=== PATIENT | male | born 1975 | race Caucasian/White ===

== ENCOUNTER 2016-12-14 15:13 | Emergency (ER) | payer MEDICARE, OTHER ==
[~2016-12-14] VITALS: Ht 188 cm; Wt 188.0 kg
[~2016-12-14 15:13] MED LIST: CYMB60CA PO; HYDR12.56 PO; LISI40TA PO; LORTA10 PO; XANA0.5T PO
[2016-12-14 15:17] VITALS: BP 150/99; PULSE 104; RESP 22; TEMP 98.4; O2SAT 97
[2016-12-14] MEDS ORDERED: CYMB60CA PO (15:30)
[2016-12-14] MEDS ORDERED: HYDR12.57 PO (15:30)
[2016-12-14] MEDS ORDERED: LISI40TA PO (15:30)
[2016-12-14] MEDS ORDERED: [UNRECOGNIZED DRUG - OTHER] PO (15:30)
[2016-12-14] MEDS ORDERED: PROT40TA PO (15:30)
[2016-12-14] MEDS ORDERED: REQU5TAB PO (15:30)
[2016-12-14 15:33] VITALS: BP 150/99; PULSE 99; RESP 20; TEMP 97.4; O2SAT 97
[2016-12-14] MEDS ORDERED: SODIUM CHLOR 0.9% 1000 ML INJ 1,000 ML IV SCH (16:11)
[2016-12-14] MEDS ORDERED: HYDROmorphone HCL PF 2 MG/ML VIAL IVS ONE (16:15)
[2016-12-14] MEDS ORDERED: SODIUM CHLORIDE 0.9% FLUSH 10 ML FLUSH IV FLUSH PRN (16:15)
[2016-12-14] MEDS ORDERED: CLINDAMYCIN INJ 600 MG in SODIUM CHLORIDE 0.9% INJ 100 ML IV ONE (16:15)
--- NOTE | 2016-12-14 16:23 | PD ---
HPI Chief Complaint: Skin Problem Time Seen by Provider: 16:03 Travel History International Travel<30 days: No Contact w/Intl Traveler<30days: No Traveled to known affect area: No History of Present Illness HPI 40-year-old male with history of hypertension here for evaluation of painful swelling in umbilical region. Patient reports history of umbilical hernia, no history of abdominal surgeries. He states that for the last week he has noticed an increasing swelling, pain, and redness to his umbilical area. He denies fevers or chills. No trauma. No vomiting. He is having normal bowel movements, however he states that when he does a creates pain in his umbilical area. Pain is moderate to severe, constant, worse with movement and palpation. PFSH Past Medical History Depression: Yes Cardiovascular Problems: Yes (HTN) Chemotherapy: No Cerebrovascular Accident: No Diabetes: No Diminished Hearing: No GERD: Yes Hypertension: Yes Medical other: Yes (restless leg) Musculoskeletal: Yes (chronic pain ) Respiratory: No Influenza Vaccination: No ?: Not Social History Alcohol Use: No Tobacco Use: Yes Allergies-Medications (Allergen,Severity, Reaction): Coded Allergies: Morphine (Unverified Allergy, Severe, HIVES, 12/14/16) Penicillin (Unverified Allergy, Severe, CHILDHOOD,UNKNOWN, 12/14/16) Gabapentin (Verified Allergy, Intermediate, 12/14/16) Reported Meds & Prescriptions Reported Meds & Active Scripts Active Reported [vicoprophen] 7.5 Mg PO QID Requip (Ropinirole) 5 Mg Tab 5 Mg PO HS Protonix (Pantoprazole Sodium) 40 Mg Tab 40 Mg PO DAILY Cymbalta DR (Duloxetine HCl) 60 Mg Capdr 160 Mg PO HS Lisinopril 40 Mg Tab 40 Mg PO DAILY Hydrochlorothiazide 12.5 Mg Cap 12.5 Mg PO BID Review of Systems Except as stated in HPI: all other systems reviewed are Neg Physical Exam Narrative GENERAL: Well-developed, well-nourished, overweight, no acute distress. SKIN: Moderate sized umbilical hernia with overlying warmth and erythema, induration, mild purulent drainage, and diffuse tenderness. HEAD: Atraumatic. Normocephalic. EYES: Pupils equal and round. No scleral icterus. No injection or drainage. ENT: Mucous membranes pink and moist. NECK: Trachea midline. No JVD. CARDIOVASCULAR: Regular rate and rhythm. RESPIRATORY: No accessory muscle use. Clear to auscultation. Breath sounds equal bilaterally. GASTROINTESTINAL: Skin exam as above. Abdomen soft, nondistended. Moderate diffuse tenderness, no peritoneal signs. MUSCULOSKELETAL: No obvious deformities. No clubbing. No cyanosis. No edema. NEUROLOGICAL: Awake and alert. No obvious cranial nerve deficits. Motor grossly within normal limits. Normal speech. PSYCHIATRIC: Appropriate mood and affect; insight and judgment normal. Data Data Last Documented VS Vital Signs Date Time Temp Pulse Resp B/P Pulse Ox O2 Delivery O2 Flow Rate FiO2 12/14/16 18:11 84 20 150/75 95 Room Air 12/14/16 15:33 97.4 Orders Complete Blood Count With Diff (12/14/16 16:11) Comprehensive Metabolic Panel (12/14/16 16:11) Lipase (12/14/16 16:11) Lactic Acid (12/14/16 16:11) Prothrombin Time / Inr (Pt) (12/14/16 16:11) Act Partial Throm Time (Ptt) (12/14/16 16:11) Ct Abd/Pel W Iv Contrast(Rout) (12/14/16 16:11) Iv Access Insert/Monitor (12/14/16 16:11) Ecg Monitoring (12/14/16 16:11) Oximetry (12/14/16 16:11) Hydromorphone Pf Inj (Dilaudid Pf Inj) (12/14/16 16:15) Sodium Chlor 0.9% 1000 Ml Inj (Ns 1000 M (12/14/16 16:11) Sodium Chloride 0.9% Flush (Ns Flush) (12/14/16 16:15) Blood Culture (12/14/16 16:11) Clindamycin Inj (Cleocin Inj) (12/14/16 16:15) Iohexol 350 Inj (Omnipaque 350 Inj) (12/14/16 17:22) Propofol 200 Mg/20 Ml Inj (Diprivan 200 (12/14/16 18:00) Labs Laboratory Tests Test 12/14/16 16:20 White Blood Count 16.6 TH/MM3 Red Blood Count 4.31 MIL/MM3 Hemoglobin 12.7 GM/DL Hematocrit 37.8 % Mean Corpuscular Volume 87.6 FL Mean Corpuscular Hemoglobin 29.4 PG Mean Corpuscular Hemoglobin 33.6 % Concent Red Cell Distribution Width 13.9 % Platelet Count 341 TH/MM3 Mean Platelet Volume 8.3 FL Neutrophils (%) (Auto) 72.1 % Lymphocytes (%) (Auto) 17.8 % Monocytes (%) (Auto) 4.8 % Eosinophils (%) (Auto) 2.9 % Basophils (%) (Auto) 2.4 % Neutrophils # (Auto) 11.9 TH/MM3 Lymphocytes # (Auto) 3.0 TH/MM3 Monocytes # (Auto) 0.8 TH/MM3 Eosinophils # (Auto) 0.5 TH/MM3 Basophils # (Auto) 0.4 TH/MM3 CBC Comment DIFF FINAL Differential Comment Prothrombin Time 11.1 SEC Prothromb Time International 1.0 RATIO Ratio Activated Partial 24.7 SEC Thromboplast Time Sodium Level 137 MEQ/L Potassium Level 3.7 MEQ/L Chloride Level 102 MEQ/L Carbon Dioxide Level 27.7 MEQ/L Anion Gap 7 MEQ/L Blood Urea Nitrogen 10 MG/DL Creatinine 1.00 MG/DL Estimat Glomerular Filtration 83 ML/MIN Rate Random Glucose 135 MG/DL Lactic Acid Level 1.5 mmol/L Calcium Level 9.2 MG/DL Total Bilirubin 0.4 MG/DL Aspartate Amino Transf 20 U/L (AST/SGOT) Alanine Aminotransferase 25 U/L (ALT/SGPT) Alkaline Phosphatase 101 U/L Total Protein 8.3 GM/DL Albumin 3.6 GM/DL Lipase 128 U/L [facility] Medical Decision Making Medical Screen Exam Complete: Yes Emergency Medical Condition: Yes Medical Record Reviewed: Yes Differential Diagnosis Periumbilical hernia: Incarcerated versus strangulated, periumbilical abscess/ cellulitis Narrative Course Initial vital signs show heart rate 104, blood pressure 150/99, pulse ox 97% on room air, oral temp of 98.4F. Heart rate improved to 84 after the patient received IV fluids and pain control. CBC shows WBC 16.6, hemoglobin 12.7, hematocrit 37.8, platelets 341, neutrophils 72.1%. CMP is unremarkable. Lipase is 128. Lactic acid is 1.5. CT abdomen pelvis: CONCLUSION: 1. Small umbilical hernia containing mesenteric fat. 2. Several nonspecific mildly prominent bilateral inguinal lymph nodes. Patient has overlying cellulitis over the umbilical hernia with an area of purulence. Patient was consented for procedural sedation for reduction of this hernia, however prior to sedating the patient I was able to easily reduce the hernia. Although the hernia is easily reduced, it returns back to being protruded after pressure is taken off of the site. This hernia is not incarcerated or strangulated, however because of the overlying cellulitis and purulence with elevated WBC count, I told the patient would like to admit him for IV antibiotics and Gen. surgery evaluation. The patient tells me that he would be amenable to this plan, however he cannot be admitted at this time as he has several things to take care of at home. He would like to leave AMA, and return when he takes care of these things to be further treated. The patient has a capacity to leave AMA. He understands that there are risks of leaving AMA including but not limited to , worsening clinical condition, sepsis, permanent disability. He was told that he could return to the emergency department at any time and should return for any concerning symptoms. He states he will follow-up with his primary care physician in the next 1-2 days. AMA: The risks of leaving against medical advice without further evaluation treatment were discussed with the patient. These risks include cardiac dysfunction, cardiac dysrhythmia, possible heart attack, possible stroke or . The patient indicated understanding of these risks and appeared to have the capacity to make this decision. Diagnosis Primary Impression: Umbilical hernia Qualified Code: K42.9 - Umbilical hernia without obstruction and without gangrene Additional Impressions: Cellulitis, umbilical Left against medical advice Referrals: Keith Hunter MD 1 day General surgeon Primary Care Physician 1 day Additional Instructions: Follow-up with your primary care physician in the next 1-2 days. Take antibiotics as prescribed. Return to the emergency department as soon as you are able to as I would like you to be admitted for further treatment. Scripts Clindamycin 150 Mg [id number] Mg PO Q6H 10 Days Ref 0 Prov:Larry Matias MD 12/14/16 Disposition: 01 DISCHARGE HOME Condition: Stable Larry Matias MD December 14, 2016 16:23
[2016-12-14 16:48] VITALS: BP 131/77; PULSE 90; RESP 18; O2SAT 97
[2016-12-14 17:08] LABS: APTT (PATIENT) 24.7 SEC (24.3-30.1); PROTHROMBIN TIME - PATIENT 11.1 SEC (9.8-11.6)
[2016-12-14 17:14] LABS: AUTOMATED NEUTROPHIL # 11.9 TH/MM3 (1.8-7.7); BASOPHIL # 0.4 TH/MM3 (0-0.2); BASOPHIL % 2.4 % (0.0-2.0); EOSINOPHIL # 0.5 TH/MM3 (0-0.4); EOSINOPHIL % 2.9 % (0.0-4.0); HEMATOCRIT 37.8 % (39.0-51.0); HEMO FLAGS DIFF FINAL; LYMPH % 17.8 % (9.0-44.0); MEAN CELL VOLUME 87.6 FL (80.0-100.0); MEAN CORPUSCULAR HEMOGLOBIN 29.4 PG (27.0-34.0); MEAN CORPUSCULAR HGB CONC 33.6 % (32.0-36.0); MONO % 4.8 % (0.0-8.0); NEUT % 72.1 % (16.0-70.0); PLATELET COUNT 341 TH/MM3 (150-450); RED BLOOD COUNT 4.31 MIL/MM3 (4.50-5.90); RED CELL DISTRIBUTION WIDTH 13.9 % (11.6-17.2); WHITE BLOOD COUNT 16.6 TH/MM3 (4.0-11.0)
[2016-12-14 17:19] LABS: CHLORIDE 102 MEQ/L (98-107); POTASSIUM 3.7 MEQ/L (3.5-5.1); SODIUM (NA) 137 MEQ/L (136-145)
[2016-12-14] MEDS ORDERED: IOHEXOL 350 MG/ML 10 ML VIAL (for RAD DIAG) IV ONE (17:22)
[2016-12-14 17:30] LABS: ANION GAP 7 MEQ/L (5-15); BICARBONATE 27.7 MEQ/L (21.0-32.0); BLOOD UREA NITROGEN 10 MG/DL (7-18)
[2016-12-14 17:32] LABS: ALT (GPT) 25 U/L (12-78)
[2016-12-14 17:33] LABS: AST (GOT) 20 U/L (15-37); GLOMERULAR FILTRATION RATE 83 ML/MIN (>89)
[2016-12-14 17:34] LABS: TOTAL BILIRUBIN ADULT 0.4 MG/DL (0.2-1.0)
[2016-12-14 17:35] LABS: ALKALINE PHOSPHATASE 101 U/L (45-117)
--- NOTE | 2016-12-14 17:38 | RADHPO ---
EXAM DATE/TIME: 12/14/2016 17:05 [facility] COMPARISON: No previous studies available for comparison. INDICATIONS : Swelling in umbilical area. IV CONTRAST: 95 cc Omnipaque 350 (iohexol) IV ORAL CONTRAST: No oral contrast ingested. RADIATION DOSE: 31.37 CTDIvol (mGy) MEDICAL HISTORY : Hypertension. Gastroesophageal reflux disease. SURGICAL HISTORY : None. ENCOUNTER: Initial ACUITY: 1 week PAIN SCALE: 2/10 LOCATION: abdomen TECHNIQUE: Volumetric scanning of the abdomen and pelvis was performed. Using automated exposure control and ad justment of the mA and/or kV according to patient size, radiation dose was kept as low as reasonably achievable to obtain optimal diagnostic quality images. FINDINGS: LOWER LUNGS: The visualized lower lungs are clear. LIVER: Homogeneous density without lesion. There is no dilation of the biliary tree. No calcified gallston es. SPLEEN: Normal size without lesion. PANCREAS: Within normal limits. KIDNEYS: Normal in size and shape. There is no mass, stone or hydronephrosis. ADRENAL GLANDS: Within normal limits. VASCULAR: There is no aortic aneurysm. BOWEL/MESENTERY: The stomach, small bowel, and colon demonstrate no acute abnormality. There is no free intraperitone al air or fluid. ABDOMINAL WALL: There is a small umbilical hernia containing mesenteric fat. RETROPERITONEUM: There is no lymphadenopathy. BLADDER: No wall thickening or mass. REPRODUCTIVE: Within normal limits. INGUINAL: There is a nonspecific mildly prominent inguinal lymph nodes bilaterally. MUSCULOSKELETAL: Within normal limits for patient age. CONCLUSION: 1. Small umbilical hernia containing mesenteric fat. 2. Several nonspecific mildly prominent bilateral inguinal lymph nodes. Melvin Weston MD on December 14, 2016 at 17:33 Board Certified Radiologist. This report was verified electronically.
[2016-12-14] MEDS: PROPOFOL 200 MG/20 ML AMP IV ONE ×2 (18:00→18:04)
[2016-12-14 18:11] VITALS: BP 150/75; PULSE 84; RESP 20; O2SAT 95
[2016-12-14] MEDS ORDERED: HYDROmorphone HCL PF 1 MG/ML VIAL IV PUSH ONE (18:30)
[2016-12-14] MEDS ORDERED: CLIN1CAP5 PO (18:34)
[2016-12-14 18:52] VITALS: RESP 18
== END 2016-12-14 18:58 | disposition home or self-care (01) ==
LOC: PHED 15:13
DX: K42.9 Umbilical hernia without obstruction or gangrene (principal); L03.316 Cellulitis of umbilicus; G89.29 Other chronic pain; I10 Essential (primary) hypertension; F32.9 Major depressive disorder, single episode, unspecified; K21.9 Gastro-esophageal reflux disease without esophagitis; G25.81 Restless legs syndrome; Z72.0 Tobacco use; Z79.899 Other long term (current) drug therapy
CPT/HCPCS: 74177; 80053; 83605; 83690; 85025; 85610; 85730; 87040; 96361; 96365; 96375; 96376; 99285; J1170; J7030; Q9967